=== PATIENT | male | born 1955 | race Caucasian/White ===

== ENCOUNTER 2019-03-05 05:15 | Emergency (ER) | payer OTHER ==
[~2019-03-05] VITALS: Ht 365.8 cm; Wt 97.7 kg
[~2019-03-05 05:15] MED LIST: PRILOSEC20 MG PO; PROVENTIL HFA6.7 GM INH
[2019-03-05 05:20] VITALS: Ht 365.8 cm; Wt 97.7 kg
[2019-03-05] MEDS ORDERED: UNK B/P MED (05:24)
[2019-03-05] MEDS ORDERED: MEDROL DOSE PACK4 MG PO (06:22)
[2019-03-05 06:33] VITALS: BP 165/91
== END 2019-03-05 06:33 | disposition home or self-care (01) ==
LOC: D.ER 05:15
DX: R06.1 Stridor (principal); T78.40XA Allergy, unspecified, initial encounter; F41.9 Anxiety disorder, unspecified